=== PATIENT | female | born 1930 | race African-American/Black ===

== ENCOUNTER 2019-01-13 08:21 | Emergency (ER) | payer OTHER ==
[~2019-01-13] VITALS: Ht 160 cm; Wt 50.0 kg
[2019-01-13 09:33] LABS: BASOPHILS % 0.5 % (0.0-2.0); HEMATOCRIT. 37.1 % (36.0-48.0); HEMOGLOBIN. 12.3 g/dL (12.0-16.0); LYMPHOCYTES % 11.7 % (20.0-50.0); MEAN CORPUSCULAR HEMOGLOBIN 28.8 pg (28.0-32.0); MEAN CORPUSCULAR VOLUME 86.6 fL (81.0-99.0); MONOCYTES % 9.3 % (2.0-8.0); NEUTROPHILS % 78.5 % (40.0-76.0); PLATELET 302 x1000/uL (130-400); RED BLOOD CELL COUNT 4.28 mill/uL (4.2-5.4); RED CELL DISTRIBUTION WIDTH 14.5 % (11.6-14.6)
[2019-01-13 09:39] LABS: CHLORIDE 102 mEq/L (98-107)
[2019-01-13] MEDS ORDERED: SODIUM CHLORIDE 0.9% 500 ML IV ONE (09:40)
[2019-01-13 09:42] LABS: INR 1.2; PROTHROMBIN TIME 11.8 sec (9.1-11.1)
[2019-01-13 09:48] LABS: CREATINE KINASE 181 IU/L (26-192)
[2019-01-13 09:50] LABS: CREATINE KINASE MB FRACTION 1.3 ng/mL (0.5-3.6)
[2019-01-13 10:26] LABS: CLARITY URINE CLEAR (CLEAR); COLOR URINE YELLOW (YELLOW); KETONES URINE NEGATIVE (NEGATIVE); LEUKOCYTE ESTERASE URINE NEGATIVE (NEGATIVE); NITRITE URINE NEGATIVE (NEGATIVE); OCCULT BLOOD URINE NEGATIVE (NEGATIVE); PH URINE 6.5 (4.5-8.0); PROTEIN URINE NEGATIVE (NEGATIVE); SPECIFIC GRAVITY URINE 1.013 (1.005-1.030)
[2019-01-13 11:00] VITALS: BP 112/69
[2019-01-13] MEDS ORDERED: ACETAMINOPHEN 325MG TABLET PO ONE (11:15)
== END 2019-01-13 13:40 | disposition short-term general hospital (02) ==
LOC: ER 08:21 → CANBEDREQ 14:01
DX: G92 Toxic encephalopathy (principal); S00.03XA Contusion of scalp, initial encounter; R50.9 Fever, unspecified; I10 Essential (primary) hypertension; E78.00 Pure hypercholesterolemia, unspecified; W18.39XA Other fall on same level, initial encounter; Y93.89 Activity, other specified; Y92.89 Other specified places as the place of occurrence of the external cause; Y99.8 Other external cause status
CPT/HCPCS: 36415; 70450; 71045; 72125; 72170; 80053; 80165; 81003; 82550; 82553; 83690; 83735; 83880; 84484; 85025; 85610; 85730; 87086; 93005; 96360; 96361; 99285; J7040

== ENCOUNTER 2019-01-18 15:54 | Inpatient (IN) | payer OTHER ==
[~2019-01-18] VITALS: Ht 157.5 cm; Wt 48.5 kg
[2019-01-18] MEDS ORDERED: LORA2TAB2 PO (16:06)
[2019-01-18] MEDS ORDERED: DONE5TAB33 PO (16:06)
[2019-01-18] MEDS ORDERED: DIVA125T31 PO (16:06)
[2019-01-18] MEDS ORDERED: ATOR20TA65 PO (16:06)
[2019-01-18] MEDS ORDERED: SERT50TA12 PO (16:06)
[2019-01-18] MEDS ORDERED: LISI-604 PO (16:06)
[2019-01-18] MEDS ORDERED: LIDOCAINE 1%/EPI 1:100,000 10 ML VIAL IJ ONE (17:00)
[2019-01-18] MEDS ORDERED: BACITRACIN ZINC OINT UDPKT TOP ONE (17:00)
[2019-01-18] MEDS ORDERED: LIDOCAINE HCL/PF 1% 10 MG/ML 5ML VIAL IJ ONE (17:00)
[2019-01-18] MEDS ORDERED: TETANUS, DIPHTHERIA, PERTUSSIS VAC/PF 0.5ML (>7YR OLD) IM ONE (17:00)
[2019-01-18] MEDS ORDERED: LIDOCAINE HCL/EPINEPHRINE 1%-EPI 1:100,000 20 ML VIAL MC NR (17:15)
[2019-01-18] MEDS ORDERED: LORAZEPAM 2MG/ML CPJ IM STA ×2 (17:21→17:45)
[2019-01-18 17:40] LABS: BASOPHILS % 0.2 % (0.0-2.0); HEMATOCRIT. 36.9 % (36.0-48.0); HEMOGLOBIN. 11.9 g/dL (12.0-16.0); LYMPHOCYTES % 10.1 % (20.0-50.0); MEAN CORPUSCULAR VOLUME 86.7 fL (81.0-99.0); MONOCYTES % 9.2 % (2.0-8.0); NEUTROPHILS % 80.5 % (40.0-76.0); PLATELET 282 x1000/uL (130-400); RED BLOOD CELL COUNT 4.26 mill/uL (4.2-5.4); RED CELL DISTRIBUTION WIDTH 14.9 % (11.6-14.6)
[2019-01-18 17:44] LABS: CHLORIDE 109 mEq/L (98-107)
[2019-01-18 17:47] LABS: INR 1.1; PARTIAL THROMBOPLASTIN TIME 26.1 sec (23.4-31.0); PROTHROMBIN TIME 11.4 sec (9.1-11.1)
[2019-01-18] MEDS ORDERED: HALOPERIDOL LACTATE 5MG/ML VIAL IM ONE (18:45)
[2019-01-18] MEDS ORDERED: SODIUM CHLORIDE 0.9% 1,000 ML IV ONE (18:46)
[2019-01-18] MEDS ORDERED: LEVETIRACETAM 500MG PREMIX 100 ML IV ONE (21:00)
[2019-01-18] MEDS ORDERED: LEVOFLOXACIN 750MG PREMIX 150 ML IV ONE (21:00)
[2019-01-18] MEDS ORDERED: SODIUM CHLORIDE 0.9% 1000ML BAG (SEPSIS BOLUS) IV ONE (21:00)
[2019-01-18] MEDS ORDERED: MORPHINE SULFATE 4 MG/ML CPJ (NOT FOR IM USE) IV PRN (21:15)
[2019-01-18] MEDS ORDERED: NICARDIPINE 100 MG in SODIUM CHLORIDE 0.9% 60 ML IV PRN ×2 (21:15→22:00)
[2019-01-18] MEDS ORDERED: LORAZEPAM 2MG/ML CPJ IV ONE (22:15)
[2019-01-19] VITALS (42 sets, daily range): BP systolic 36–160; BP diastolic 18–91
[2019-01-19] MEDS ORDERED: ONDANSETRON HCL 4MG/2ML INJ IV PRN (00:30)
[2019-01-19] MEDS ORDERED: HYDROMORPHONE HCL/PF 2MG/ML CPJ IV PRN (00:30)
[2019-01-19] MEDS ORDERED: ACETAMINOPHEN 650MG SUPP PR PRN (00:30)
[2019-01-19] MEDS: DEXT 5%/0.45% NACL 1000ML 1,000 ML IV SCH ×2 (02:59→15:47)
[2019-01-19] MEDS: INSULIN LISPRO 100 UNITS/ML SUBCUT SCH ×4 (07:06→20:30)
[2019-01-19] MEDS ORDERED: DEXTROSE 50% WATER 50ML SYRINGE IV PRN (07:15)
[2019-01-19 07:17] LABS: CLARITY URINE CLOUDY (CLEAR); COLOR URINE ORANGE (YELLOW); KETONES URINE NEGATIVE (NEGATIVE); LEUKOCYTE ESTERASE URINE 2+ (NEGATIVE); NITRITE URINE NEGATIVE (NEGATIVE); OCCULT BLOOD URINE 3+ (NEGATIVE); PROTEIN URINE TRACE (NEGATIVE); SPECIFIC GRAVITY URINE 1.006 (1.005-1.030)
[2019-01-19] MEDS: BLOOD SUGAR DIAGNOSTIC STRIP TEST SCH ×4 (07:25→20:21)
[2019-01-19] MEDS ORDERED: LEVETIRACETAM 500MG PREMIX 100 ML IV SCH (09:00)
[2019-01-19] MEDS: LEVETIRACETAM 500MG in SODIUM CHLORIDE 0.9% 100ML IV SCH ×2 (09:02→20:22)
[2019-01-19] MEDS ORDERED: SODIUM CHLORIDE 0.9% 1,000 ML IV SCH (09:30)
[2019-01-19] MEDS ORDERED: ATROPINE SULFATE 1MG/ML VIAL IV PRN (09:45)
[2019-01-19 11:05] LABS: CHLORIDE 116 mEq/L (98-107)
[2019-01-19 11:12] LABS: LDL CHOLESTEROL 86 mg/dL (5-100)
[2019-01-19 11:13] LABS: HDL CHOLESTEROL 26 mg/dL (40-59)
[2019-01-19 11:14] LABS: T4 FREE 1.69 ng/dL (0.76-1.46)
[2019-01-19] MEDS ORDERED: KCL 10MEQ/50ML PREMIX 50 ML IV ONE ×4 (12:45→15:45)
[2019-01-19] MEDS ORDERED: MAGNESIUM 2 G PREMIX 50 ML IV NR (14:00)
[2019-01-19] MEDS ORDERED: POTASSIUM CHLORIDE INJ 40 MEQ in DEXT 5% WATER 500 ML IV NR (14:30)
[2019-01-19] MEDS: LEVOFLOXACIN 250MG PREMIX 50 ML IV SCH (17:49)
[2019-01-19 19:49] LABS: CREATINE KINASE 112 IU/L (26-192)
[2019-01-19 19:50] LABS: CREATINE KINASE MB FRACTION 1.9 ng/mL (0.5-3.6)
[2019-01-19] MEDS: NEOMY SULF/BACITRAC ZN/POLY OINT 28GM TOP SCH (20:55)
[2019-01-20] VITALS (7 sets, daily range): BP systolic 106–138; BP diastolic 51–75
[2019-01-20 01:19] LABS: CREATINE KINASE 105 IU/L (26-192)
[2019-01-20 01:20] LABS: CREATINE KINASE MB FRACTION 1.8 ng/mL (0.5-3.6)
[2019-01-20] MEDS: BLOOD SUGAR DIAGNOSTIC STRIP TEST SCH ×3 (06:14→17:21)
[2019-01-20] MEDS: INSULIN LISPRO 100 UNITS/ML SUBCUT SCH ×3 (06:14→17:21)
[2019-01-20 07:08] LABS: BASOPHILS % 0.4 % (0.0-2.0); HEMATOCRIT. 30.8 % (36.0-48.0); HEMOGLOBIN. 10.2 g/dL (12.0-16.0); LYMPHOCYTES % 14.6 % (20.0-50.0); MEAN CORPUSCULAR HEMOGLOBIN 28.8 pg (28.0-32.0); MEAN CORPUSCULAR VOLUME 86.4 fL (81.0-99.0); MONOCYTES % 9.5 % (2.0-8.0); NEUTROPHILS % 75.5 % (40.0-76.0); PLATELET 213 x1000/uL (130-400); RED BLOOD CELL COUNT 3.56 mill/uL (4.2-5.4); RED CELL DISTRIBUTION WIDTH 14.6 % (11.6-14.6)
[2019-01-20 07:38] LABS: CHLORIDE 117 mEq/L (98-107)
[2019-01-20 07:46] LABS: CREATINE KINASE 74 IU/L (26-192)
[2019-01-20 07:49] LABS: CREATINE KINASE MB FRACTION 1.2 ng/mL (0.5-3.6)
[2019-01-20] MEDS: LEVETIRACETAM 500MG in SODIUM CHLORIDE 0.9% 100ML IV SCH (09:14)
[2019-01-20] MEDS: NEOMY SULF/BACITRAC ZN/POLY OINT 28GM TOP SCH (09:15)
[2019-01-20] MEDS: LEVOFLOXACIN 250MG PREMIX 50 ML IV SCH (14:06)
[2019-01-20] MEDS: DEXT 5%/0.45% NACL 1000ML 1,000 ML IV SCH (17:17)
== END 2019-01-20 20:45 | disposition short-term general hospital (02) | DRG 871 ==
LOC: ER 15:54 → MICUSO 21:37 → EDBEDREQTM 21:42 → EDBEDREQ 21:42 → SUPCPDRO 01-19 00:28 → ENRESERV 01-19 01:46 → 8WST 01-19 13:46
PROVIDERS: ADMIT Hospitalist; ATTEND Hospitalist
PROC: 0HQ1XZZ Repair Face Skin, External Approach (ICD-10-PCS; principal; 2019-01-18)
DX: A41.9 Sepsis, unspecified organism (principal); S06.5X9A Traumatic subdural hemorrhage with loss of consciousness of unspecified duration, initial encounter; G93.41 Metabolic encephalopathy; E43 Unspecified severe protein-calorie malnutrition; N39.0 Urinary tract infection, site not specified; J84.9 Interstitial pulmonary disease, unspecified; G96.0 Cerebrospinal fluid leak; Z68.1 Body mass index [BMI] 19.9 or less, adult; Z66 Do not resuscitate; W06.XXXA Fall from bed, initial encounter; R00.1 Bradycardia, unspecified; S01.81XA Laceration without foreign body of other part of head, initial encounter; I10 Essential (primary) hypertension; F03.90 Unspecified dementia, unspecified severity, without behavioral disturbance, psychotic disturbance, mood disturbance, and anxiety; E11.9 Type 2 diabetes mellitus without complications; I35.0 Nonrheumatic aortic (valve) stenosis; E78.00 Pure hypercholesterolemia, unspecified; E78.5 Hyperlipidemia, unspecified; M19.90 Unspecified osteoarthritis, unspecified site; Y93.89 Activity, other specified; Y92.89 Other specified places as the place of occurrence of the external cause; Y99.8 Other external cause status; Z78.1 Physical restraint status; Z88.8 Allergy status to other drugs, medicaments and biological substances
CPT/HCPCS: 36415; 70486; 71045; 72192; 73502; 80048; 80061; 80165; 82550; 82553; 82962; 83036; 83605; 83735; 83880; 84134; 84439; 84443; 84484; 85379; 87077; 87186; 90715; 93005; 93306; 93970; 96372; 96374; 97162; 97166; 99285; C1893; J1630; J1953; J1956; J2060; J3475; J3480; J3490; J7030; J7050; J7060; A4315